=== PATIENT | female | born 1980 | race Caucasian/White ===

== ENCOUNTER → 2018-03-30 | Outpatient (CLI) | payer OTHER ==
[~2018-03-30] MED LIST: AMOCLA500 PO; AMOCLA875 PO; AMOX500; AZIT250 PO; CEFD300 PO; CEPH500 PO; CLIN150 PO; CLIN300 PO; CLON.1 PO; CRUTCH4 USE; DIPATR PO; DIPH50 PO; DOXY100 PO; DOXY100T53 PO; GABA300 PO; GUAI100SY PO; HYDACE10B PO; HYDACE5 PO; HYDACE5325; IBUP400 PO; IBUP600 PO; IBUP800; IBUP800 PO; LEVOTHYROXINE; LEVSOD100; LEVSOD150; LEVSOD175 PO; LEVSOD200; LEVSOD200 PO; METH10; METH10 PO; METH40; METH5 PO; METHADONE 50 MG; MORP15ER PO; Morphine Sulfat15 MG PO; ONDA4ODT MM; OXYACE5T PO; PANT40; PANT40 PO; PENVK500 PO; PRED5; PROG100; PROG100 PO; PROM25; PROM25 PO; PSEU120ER PO; RANI150; RXOXYACE PO; RXPENVK250 PO; Synthroid/Levo0.2 MG PO; Veetids 500500 MG PO; Zofran Odt4 MG PO; [UNRECOGNIZED DRUG - OTHER]; [UNRECOGNIZED DRUG - OTHER]; [UNRECOGNIZED DRUG - OTHER] PR; [UNRECOGNIZED DRUG - REMARK]; [UNRECOGNIZED DRUG - REMARK]
== END | disposition home or self-care (01) ==
LOC: LAB SHORT 14:47 → LAB EV 14:47
DX: N39.0 Urinary tract infection, site not specified (principal)
CPT/HCPCS: 87077; 87086; 87186

== ENCOUNTER 2018-08-01 06:43 | Emergency (ER) | payer OTHER ==
[~2018-08-01] VITALS: Ht 157.5 cm; Wt 57.6 kg
[2018-08-01] MEDS ORDERED: LORA1SY PO (07:09)
[2018-08-01] MEDS ORDERED: Sudogest60 MG PO (07:57)
[2018-08-01] MEDS ORDERED: MONDOXYNE NL100 MG PO (07:57)
== END 2018-08-01 08:46 | disposition home or self-care (01) ==
LOC: ER 06:43
DX: J32.9 Chronic sinusitis, unspecified (principal); E03.9 Hypothyroidism, unspecified; Z87.891 Personal history of nicotine dependence
CPT/HCPCS: 71046; 96372; 99283-25; J1885

== ENCOUNTER 2019-01-16 17:43 | Emergency (ER) | payer OTHER ==
[~2019-01-16] VITALS: Ht 157.5 cm; Wt 56.2 kg
[~2019-01-16 17:43] MED LIST changes: +LORA1SY PO; +MONDOXYNE NL100 MG PO; +Sudogest60 MG PO
[2019-01-16] MEDS ORDERED: CLIN300 PO (20:18)
== END 2019-01-16 20:20 | disposition left against medical advice (07) ==
LOC: ER 17:43
DX: R22.0 Localized swelling, mass and lump, head (principal); E03.9 Hypothyroidism, unspecified; M79.7 Fibromyalgia; Z88.8 Allergy status to other drugs, medicaments and biological substances; Z88.0 Allergy status to penicillin; Z79.899 Other long term (current) drug therapy; Z87.891 Personal history of nicotine dependence
CPT/HCPCS: 99282

== ENCOUNTER → 2019-04-03 | Outpatient (CLI) | payer SELFPAY ==
[2019-04-03 18:22] LABS: BASOPHILS ABSOLUTE AUTO 0.06 K/mm3 (0.00-0.23); BASOPHILS PERCENT AUTO 1 % (0-2); EOSINOPHILS ABSOLUTE AUTO 0.18 K/mm3 (0.00-0.68); EOSINOPHILS PERCENT AUTO 2 % (0-6); Hematocrit 39.2 % (33.0-51.0); Hemoglobin 13.5 g/dL (11.5-16.0); IMMATURE GRAN ABSOLUTE AUTO 0.02 K/mm3 (0.00-0.10); IMMATURE GRAN PERCENT AUTO 0 % (0-1); LYMPHOCYTES ABSOLUTE AUTO 2.04 K/mm3 (0.84-5.20); LYMPHOCYTES PERCENT AUTO 24 % (21-46); MONOCYTES ABSOLUTE AUTO 0.72 K/mm3 (0.16-1.47); MONOCYTES PERCENT AUTO 9 % (4-13); Mean Corpuscular HGB 31.7 pg (26.0-34.0); Mean Corpuscular HGB Conc 34.4 g/dL (31.5-36.5); Mean Corpuscular Volume 92 fL (80-100); Mean Platelet Volume 9.9 fL (9.1-12.4); NEUTROPHILS ABSOLUTE AUTO 5.48 K/mm3 (1.96-9.15); NEUTROPHILS PERCENT AUTO 65 % (41-73); Platelet Count 264 K/mm3 (150-400); RDW Standard Deviation 43.4 fL (35.1-46.3); Red Blood Cell Count 4.26 M/mm3 (3.80-5.20)
[2019-04-03 18:45] LABS: Alanine Aminotransfer (ALT/SGP 12 U/L (12-78); Albumin/Globulin Ratio 1.2 (0.8-1.8); Alk Phos 46 U/L (40-126); Anion Gap 5 mmol/L (6-16); Aspartate Aminotrans (AST/SGOT 12 U/L (12-37); Bilirubin, Total 1.3 mg/dL (0.1-1.0); Blood Urea Nitrogen 7 mg/dL (8-24); Bun/Creatinine Ratio 12.1 (12.0-20.0); CO2, Blood 31 mmol/L (21-32); Calcium, Blood 8.7 mg/dL (8.5-10.1); Chloride, Blood 105 mmol/L (98-108); Creatinine, Blood 0.58 mg/dL (0.40-1.00); Globulin, Blood 3.4 g/dL (2.2-4.0); Glomerular Filtration Rate >60 (60-); Glucose, Blood 94 mg/dL (70-99); Potassium, Blood 4.5 mmol/L (3.5-5.5); Sodium, Blood 141 mmol/L (136-145); Total Protein, Blood 7.4 g/dL (6.4-8.2)
== END | disposition home or self-care (01) ==
LOC: LAB SHORT 18:17 → LAB EV 18:17
PROVIDERS: Physician Assistant
DX: R10.9 Unspecified abdominal pain (principal)
CPT/HCPCS: 80053; 83690; 85025

== ENCOUNTER 2023-04-03 11:20 | Emergency (ER) | payer OTHER ==
[~2023-04-03] VITALS: Ht 157.5 cm; Wt 55.8 kg
[~2023-04-03 11:20] MED LIST changes: +CRUTCH2 XX; +DICY20 PO; +PANT20 PO
[2023-04-03 11:48] VITALS: BP 115/75
[2023-04-03] MEDS ORDERED: CYCL10 PO (12:28)
== END 2023-04-03 14:25 | disposition home or self-care (01) ==
LOC: ER 11:20
DX: M25.551 Pain in right hip (principal); V89.2XXA Person injured in unspecified motor-vehicle accident, traffic, initial encounter; E03.9 Hypothyroidism, unspecified; Z88.0 Allergy status to penicillin; Z88.1 Allergy status to other antibiotic agents; Z88.8 Allergy status to other drugs, medicaments and biological substances; Z88.4 Allergy status to anesthetic agent; Z79.899 Other long term (current) drug therapy; Z79.890 Hormone replacement therapy; Z87.891 Personal history of nicotine dependence
CPT/HCPCS: 73502; 99283-25